=== PATIENT | male | born 1995 | race Caucasian/White ===

== ENCOUNTER 2021-04-26 13:22 | Emergency (ER) | payer OTHER ==
[~2021-04-26] VITALS: Ht 180.3 cm; Wt 127.0 kg
[2021-04-26] MEDS ORDERED: AMBIEN10 MG PO (13:57)
[2021-04-26] MEDS ORDERED: ZITHROMAX500 MG PO (15:45)
== END 2021-04-26 15:52 | disposition home or self-care (01) ==
LOC: ER 13:22
DX: H57.11 Ocular pain, right eye (principal)

== ENCOUNTER 2021-11-07 08:48 | Emergency (ER) | payer OTHER ==
[~2021-11-07] VITALS: Ht 182.9 cm; Wt 120.2 kg
[~2021-11-07 08:48] MED LIST: AMBIEN10 MG PO; ZITHROMAX500 MG PO
[2021-11-07] MEDS ORDERED: ZYRTEC10 M3 PO (10:37)
[2021-11-07] MEDS ORDERED: DICLOFENAC POTA50 MG PO (10:37)
[2021-11-07] MEDS ORDERED: ALLERGY RELIE15.8 ML NASAL (10:37)
== END 2021-11-07 11:49 | disposition home or self-care (01) ==
LOC: ER 08:48
DX: K06.8 Other specified disorders of gingiva and edentulous alveolar ridge (principal); J01.00 Acute maxillary sinusitis, unspecified

== ENCOUNTER 2022-02-03 16:49 | Emergency (ER) | payer OTHER ==
[~2022-02-03] VITALS: Ht 182.9 cm; Wt 122.5 kg
[~2022-02-03 16:49] MED LIST changes: +ALLERGY RELIE15.8 ML NASAL; +DICLOFENAC POTA50 MG PO; +ZYRTEC10 M3 PO
[2022-02-03] MEDS ORDERED: AMBIEN10 MG PO (17:43)
== END 2022-02-03 19:21 | disposition home or self-care (01) ==
LOC: ER 16:49
DX: K12.1 Other forms of stomatitis (principal); Z91.013 Allergy to seafood